=== PATIENT | female | born 1995 | race American Indian/Alaskan Native ===

== ENCOUNTER 2018-10-31 12:24 | Emergency (ER) | payer OTHER ==
--- NOTE | 2018-10-31 13:00 | Emergency Department Report ---
ED HPI - General Chief complaint: Abdominal Pain Stated complaint: 11 WEEKS /ABD PAIN Source: patient Mode of arrival: Ambulatory Limitations: No Limitations - History of Present Illness Initial comments: This is a 23 year-old female that is 12 weeks . Patient presents to the emergency room with abdominal pain in umbilicus. The patient states she has been having intermittent sharp cramps they usually resolve in about 15-20 minutes. Today symptoms increase while at work and never resolved. Patient's ROLL OPERATOR is Dr. Molina women's ROLL OPERATOR. She was seen by [employer] 2 weeks ago and started on Macrobid last week for UTI. Patient reports STD screen was negative. Last menstrual period was 08/07/2018, 1. Patient also reports nausea, vomiting, and back pain. She is currently taking promethazine which helped symptoms. She denies vaginal bleeding, vaginal discharge, frequency, urgency, dysuria, or chest pain. MD Complaint: abdominal pain -: This afternoon Location: abdomen Radiation: none Severity: moderate Severity scale (0 -10): 8 Quality: cramping, sharp Consistency: intermittent Improves with: none Worsens with: none Associated symptoms: nausea/vomiting, abdominal pain. denies: vaginal bleeding, vaginal discharge, dysuria, headache, vision changes, malaise, dysparuenia, rash, seizure, shortness of breath, syncope, weakness Vaginal bleeding: none :: Yes Number of weeks : 12 OB History - Current : no complications OB History - Previous Pregnancies: no complications Last menstrual period: 08/07/18 Pre- care: followed by OB - Related Data : 1 Para: 0 Ab: 0 Previous Rx's Medication Instructions Recorded Last Taken Type Clindamycin [Clindamycin CAP] 300 mg PO Q6H 10 Days capsule 08/12/13 Unknown Rx Ibuprofen [Motrin 600 MG tab] 600 mg PO Q8H PRN #20 tablet 08/12/13 Unknown Rx traMADol [Ultram 50 MG tab] 50 mg PO Q6HR PRN #10 tablet 08/12/13 Unknown Rx Ibuprofen [Motrin] 600 mg PO Q8H PRN #20 tablet 05/01/14 Unknown Rx Neomy/Polymyx B/Hc (Otic) Soln 4 drops OT TID #1 bottle 05/01/14 Unknown Rx [Cortisporin (Otic) Soln] Sulfamethoxazole/Trimethoprim 1 each PO BID #28 tablet 05/01/14 Unknown Rx [Bactrim Ds] Allergies Allergy/AdvReac Type Severity Reaction Status Date / Time amoxicillin [Amoxicillin] Allergy Hives Verified 05/01/14 18:08 ED Review of Systems ROS: Stated complaint: 11 WEEKS /ABD PAIN Other details as noted in HPI Constitutional: denies: chills, fever Respiratory: denies: cough, shortness of breath, wheezing Cardiovascular: denies: chest pain, palpitations Gastrointestinal: abdominal pain, nausea. denies: diarrhea Musculoskeletal: denies: back pain, joint swelling, arthralgia Neurological: denies: headache, weakness, paresthesias Psychiatric: denies: anxiety, depression ED Past Medical Hx - Past Medical History Hx Diabetes: No Hx Renal Disease: No Hx Sickle Cell Disease: No Hx Seizures: No Hx Asthma: Yes Hx HIV: No - Social History Smoking Status: Former Smoker Substance Use Type: None - Medications Home Medications: Home Medications Medication Instructions Recorded Confirmed Last Taken Type Clindamycin [Clindamycin CAP] 300 mg PO Q6H 10 Days capsule 08/12/13 Unknown Rx Ibuprofen [Motrin 600 MG tab] 600 mg PO Q8H PRN #20 tablet 08/12/13 Unknown Rx traMADol [Ultram 50 MG tab] 50 mg PO Q6HR PRN #10 tablet 08/12/13 Unknown Rx Ibuprofen [Motrin] 600 mg PO Q8H PRN #20 tablet 05/01/14 Unknown Rx Neomy/Polymyx B/Hc (Otic) Soln 4 drops OT TID #1 bottle 05/01/14 Unknown Rx [Cortisporin (Otic) Soln] Sulfamethoxazole/Trimethoprim 1 each PO BID #28 tablet 05/01/14 Unknown Rx [Bactrim Ds] ED Physical Exam - General Limitations: No Limitations General appearance: alert, in no apparent distress - Respiratory Respiratory exam: Present: normal lung sounds bilaterally. Absent: respiratory distress - Cardiovascular Cardiovascular Exam: Present: regular rate, normal rhythm. Absent: systolic murmur, diastolic murmur, rubs, gallop - GI/Abdominal GI/Abdominal exam: Present: soft, tenderness (suprapubic tenderness), normal bowel sounds. Absent: distended, guarding, rebound, rigid, organomegaly, mass - Back Exam Back exam: Absent: CVA tenderness (R), CVA tenderness (L) - Neurological Exam Neurological exam: Present: alert, oriented X3, normal gait - Psychiatric Psychiatric exam: Present: normal affect, normal mood - Skin Skin exam: Present: warm, dry, intact, normal color. Absent: rash ED Course Vital Signs 10/31/18 12:29 Temperature 99.5 F Pulse Rate 90 Respiratory 18 Rate Blood Pressure 140/63 O2 Sat by Pulse 99 Oximetry ED Medical Decision Making - Radiology Data Radiology results: report reviewed ULTRASOUND OB LESS THAN 14 WEEKS - TRANSABDOMINAL INDICATION: Abdominal pain, 12 weeks gestation. COMPARISON: None similar. FINDINGS: Transabdominal pelvic sonography performed in this patient with LMP of 08/07/2018 and estimated menstrual age of 12 weeks and 1 day. It demonstrates a 12.3 x 8.7 x 8.1 cm gravid uterus. A heart rate of 147 beats per minute. A small subchorionic hemorrhage possible. No significant pelvic free fluid. Mean crown-rump length of 4.4 cm corresponds to 11 weeks and 2 days. Biparietal diameter is 2 cm, 13 weeks and 1 day. Femur length 1.1 cm, 13 weeks and 2 days. Maternal ovaries appear unremarkable, approximately 3.5 x 2 x 1.5 cm on the right and 3.3 x 2.1 x 3.3 cm on the left. CONCLUSION: 1. Single, live intrauterine gestation with an ultrasound estimated age of 12 weeks and 4 days and ROXY of 05/11/2019. 2. Other findings, as above. - Medical Decision Making This is a 23 y.o. female presents with abdominal pain and 12 weeks . Patient was examined by me. Vitals are normal and patient is in no acute distress. Obtained hCG quant, urinalysis, and OB ultrasound. Quant [id number], all other labs unremarkable. 1. Single, live intrauterine gestation with an ultrasound estimated age of 12 weeks and 4 days and ROXY of 05/11/2019. 2. Other findings, as above. Patient is currently taking Macrobid for acute cystitis. Patient instructed to follow up with ROLL OPERATOR. Patient discharged home in stable condition. Critical care attestation.: If time is entered above; I have spent that time in minutes in the direct care of this critically ill patient, excluding procedure time. ED Disposition Clinical Impression: Threatened miscarriage Abdominal pain during Qualifiers: Trimester: first trimester Qualified Code(s): O26.891 - Other specified related conditions, first trimester; R10.9 - Unspecified abdominal pain Subchorionic hemorrhage in first trimester Qualifiers: Fetus number: single or unspecified fetus Qualified Code(s): O41.8X10 - Other specified disorders of amniotic fluid and membranes, first trimester, not applicable or unspecified; O46.8X1 - Other antepartum hemorrhage, first trimester Disposition: TO HOME OR SELFCARE Is pt being admited?: No Does the pt Need Aspirin: No Condition: Stable Instructions: Abdominal Pain (ED) Additional Instructions: Follow up with ROLL OPERATOR in 24-48 hours. Return to ER if increased vaginal bleeding, abdominal pain, and low back pain. Referrals: SALAZAR PORRAS MD [Primary Care Provider] - 3-5 Days Forms: Work/School Release Form(ED) Time of Disposition: 15:07
[2018-10-31 13:22] LABS: Bilirubin,Urine NEG (Negative); Blood,Urine NEG (Negative); Color,Urine Yellow (Yellow); Mucus,Urine FEW /HPF; Protein,Urine <15 mg/dL mg/dL (Negative); Urobilinogen,Urine < 2.0 mg/dL (<2.0)
--- NOTE | 2018-10-31 14:43 | Ultrasound Report ---
ULTRASOUND OB LESS THAN 14 WEEKS - TRANSABDOMINAL INDICATION: Abdominal pain, 12 weeks gestation. COMPARISON: None similar. FINDINGS: Transabdominal pelvic sonography performed in this patient with LMP of 08/07/2018 and estimated menstrual age of 12 weeks and 1 day. It demonstrates a 12.3 x 8.7 x 8.1 cm gravid uterus. A heart rate of 147 beats per minute. A small subchorionic hemorrhage possible. No significant pelvic free fluid. Mean crown-rump length of 4.4 cm corresponds to 11 weeks and 2 days. Biparietal diameter is 2 cm, 13 weeks and 1 day. Femur length 1.1 cm, 13 weeks and 2 days. Maternal ovaries appear unremarkable, approximately 3.5 x 2 x 1.5 cm on the right and 3.3 x 2.1 x 3.3 cm on the left. CONCLUSION: 1. Single, live intrauterine gestation with an ultrasound estimated age of 12 weeks and 4 days and ROXY of 05/11/2019. 2. Other findings, as above. Thank you for the opportunity to participate in this patient's care.
[2018-11-02 12:05] VITALS: BP 140/63
== END 2018-10-31 15:19 | disposition home or self-care (01) ==
LOC: ED 12:24
DX: O20.0 Threatened abortion (principal); O41.8X10 Other specified disorders of amniotic fluid and membranes, first trimester, not applicable or unspecified; Z3A.12 12 weeks gestation of pregnancy; J45.909 Unspecified asthma, uncomplicated; Z87.891 Personal history of nicotine dependence
CPT/HCPCS: 36415; 76801; 81001; 84702; 86850; 86900; 86901

== ENCOUNTER 2019-04-07 17:46 | Observation (INO) | payer OTHER ==
[2019-04-07 20:17] LABS: Bacteria,Urine 1+ /HPF (Negative); Bilirubin,Urine NEG (Negative); Blood,Urine NEG (Negative); Color,Urine Yellow (Yellow); Mucus,Urine FEW /HPF; Protein,Urine <15 mg/dL mg/dL (Negative); Urobilinogen,Urine < 2.0 mg/dL (<2.0)
[2019-04-07 20:20] LABS: Hematocrit 38.7 % (30.3-42.9); Hemoglobin 13.2 gm/dl (10.1-14.3); Mean Corpuscular HGB Conc 34 % (30-34); Mean Corpuscular Volume 99 fl (79-97); Platelet Count 230 K/mm3 (140-440); Red Blood Count 3.92 M/mm3 (3.65-5.03); Red Cell Distribution Width 13.1 % (13.2-15.2)
[2019-04-07] MEDS ORDERED: LACTATED RINGERS 500 ML IV ONE (20:39)
[2019-04-07 21:22] LABS: Alanine Aminotransferase 20 units/L (7-56); Uric Acid 3.5 mg/dL (3.5-7.6)
--- NOTE | 2019-04-07 23:39 | History and Physical Report ---
History of Present Illness Date of examination: 04/07/19 Date of admission: 04/07/19 22:08 Chief complaint: Direct admit per [facility] History of present illness: This is a 23 yo at 34+5 weeks here for direct admit after symptomatic elevated BP 140/86. Past History Past Medical History: no pertinent history Past Surgical History: no surgical history Family/Genetic History: none Social history: single. denies: smoking, alcohol abuse, prescription drug abuse - Obstetrical History Expected Date of Delivery: 05/14/19 Actual Gestation: 34 Week(s) 5 Day(s) : 1 Para: 0 Hx # Term Pregnancies: 0 Number of Pregnancies: 0 Spontaneous Abortions: 0 Induced : 0 Number of Living Children: 0 Medications and Allergies Allergies Allergy/AdvReac Type Severity Reaction Status Date / Time amoxicillin [Amoxicillin] Allergy Hives Verified 05/01/14 18:08 Home Medications Medication Instructions Recorded Confirmed Last Taken Type Clindamycin [Clindamycin CAP] 300 mg PO Q6H 10 Days capsule 08/12/13 Unknown Rx Ibuprofen [Motrin 600 MG tab] 600 mg PO Q8H PRN #20 tablet 08/12/13 Unknown Rx traMADol [Ultram 50 MG tab] 50 mg PO Q6HR PRN #10 tablet 08/12/13 Unknown Rx Ibuprofen [Motrin] 600 mg PO Q8H PRN #20 tablet 05/01/14 Unknown Rx Neomy/Polymyx B/Hc (Otic) Soln 4 drops OT TID #1 bottle 05/01/14 Unknown Rx [Cortisporin (Otic) Soln] Sulfamethoxazole/Trimethoprim 1 each PO BID #28 tablet 05/01/14 Unknown Rx [Bactrim Ds] Review of Systems All systems: negative - Vital Signs Vital signs: Vital Signs Pulse BP 98 H 127/66 04/07/19 19:29 04/07/19 19:29 Temp Pulse Resp BP Pulse Ox 96.6 F L 96 H 140/65 04/07/19 19:47 04/07/19 23:30 04/07/19 23:30 - Physical Exam Breasts: Positive: normal Cardiovascular: Regular rate, Normal S1 Lungs: Positive: Clear to auscultation, Normal air movement Abdomen: Positive: normal appearance, soft, normal bowel sounds. Negative: distention, tenderness, guarding Genitourinary (Female): Positive: normal external genitalia, normal perenium Vulva: both: normal Vagina: Positive: normal moisture Uterus: Positive: normal size, normal contour Anus/Rectum: Positive: normal perianal skin, heme negative Extremities: Positive: normal Deep Tendon Reflex Grade: Normal +2 - Obstetrical FHR: category 1 Results Result Diagrams: 04/07/19 19:53 04/07/19 19:53 Abnormal lab results 04/07/19 04/07/19 Range/Units 19:53 19:53 MCV 99 H (79-97) fl MCH 34 H (28-32) pg RDW 13.1 L (13.2-15.2) % Creatinine 0.4 L (0.7-1.2) mg/dL All other labs normal. Assessment and Plan A/P IUP 34+5 weeks elevated BP PIH w/u with labs sent Betamethasone for lung maturity if increase range of BP will consider Mag continuous monitoring
[2019-04-08] VITALS: BP 121/56
[2019-04-08] MEDS ORDERED: CELESTONE SOLUSPAN IM SCH
== END 2019-04-08 00:48 | disposition home or self-care (01) ==
LOC: TRG 17:46 → LD 18:32 → TRG 22:07 → LD 22:08
PROVIDERS: ADMIT Obstetrics & Gynecology; ATTEND Obstetrics & Gynecology
DX: O26.893 Other specified pregnancy related conditions, third trimester (principal); R03.0 Elevated blood-pressure reading, without diagnosis of hypertension; Z3A.34 34 weeks gestation of pregnancy
CPT/HCPCS: 36415; 81001; 82565; 83615; 84450; 84460; 84550; 85027; 86850; 86900; 86901; G0378; J0702; 59025

== ENCOUNTER 2019-04-09 16:59 | Outpatient (CLI) | payer OTHER ==
[2019-04-09] MEDS ORDERED: CELESTONE SOLUSPAN IM SCH (18:00)
== END 2019-04-09 17:44 | disposition home or self-care (01) ==
LOC: TRG 16:59
PROVIDERS: ATTEND Obstetrics & Gynecology
DX: O47.03 False labor before 37 completed weeks of gestation, third trimester (principal); Z3A.35 35 weeks gestation of pregnancy; Z87.891 Personal history of nicotine dependence
CPT/HCPCS: 96372; J0702

== ENCOUNTER 2019-05-04 23:39 | Inpatient (IN) | payer OTHER ==
[2019-05-05 03:17] LABS: Hematocrit 38.3 % (30.3-42.9); Hemoglobin 13.5 gm/dl (10.1-14.3); Mean Corpuscular HGB Conc 35 % (30-34); Mean Corpuscular Volume 97 fl (79-97); Red Blood Count 3.95 M/mm3 (3.65-5.03)
[2019-05-05 03:24] LABS: Platelet Count 256 K/mm3 (140-440)
[2019-05-05] MEDS ORDERED: SUBLIMAZE IV ONE (08:20)
[2019-05-05] MEDS ORDERED: SUBLIMAZE ONE ×2 (08:24→10:12)
[2019-05-05] MEDS ORDERED: LACTATED RINGERS 1,000 ML ONE (08:37)
[2019-05-05] MEDS ORDERED: MINERAL OIL PO PRN (08:57)
[2019-05-05] MEDS ORDERED: BRETHINE IVP PRN (08:57)
[2019-05-05] MEDS ORDERED: STADOL IV PRN (08:57)
[2019-05-05] MEDS ORDERED: XYLOCAINE 2% INFILTRATI ONE (08:57)
[2019-05-05] MEDS ORDERED: BRETHINE SUB-Q PRN (08:57)
[2019-05-05] MEDS ORDERED: ZOFRAN IV PRN ×2 (08:57→17:06)
--- NOTE | 2019-05-05 08:57 | History and Physical Report ---
History of Present Illness Date of examination: 05/05/19 Date of admission: 05/05/2019 Chief complaint: leakage of fluid History of present illness: 23y/o @ 38+5 weeks with gross rupture of membranes with clear fluid. The patient was 1cm dilated at presentation. course initiated at 12 weeks ega. Her course is complicated by morbid obesity, STD exposure, and asthma. GBS negative Past History Past Medical History: asthma, other (morbid obesity) Past Surgical History: no surgical history Social history: single - Obstetrical History Expected Date of Delivery: 05/14/19 Actual Gestation: 38 Week(s) 5 Day(s) : 1 Para: 0 Hx # Term Pregnancies: 0 Number of Pregnancies: 0 Spontaneous Abortions: 0 Induced : 0 Medications and Allergies Allergies Allergy/AdvReac Type Severity Reaction Status Date / Time amoxicillin [Amoxicillin] Allergy Hives Verified 05/01/14 18:08 Home Medications Medication Instructions Recorded Confirmed Last Taken Type No Known Home Medications [No 05/05/19 05/05/19 Unknown History Reported Home Medications] Review of Systems All systems: negative Genitourinary: leakage of fluid - Vital Signs Vital signs: Vital Signs Pulse BP 99 H 130/74 05/05/19 02:04 05/05/19 02:04 Temp Pulse Resp BP Pulse Ox 96.3 F L 99 H 20 130/74 05/05/19 02:28 05/05/19 02:04 05/05/19 02:28 05/05/19 02:04 - Physical Exam Breasts: Positive: deferred Cardiovascular: Regular rate Lungs: Positive: Clear to auscultation Results Result Diagrams: 05/05/19 01:55 Abnormal lab results 05/05/19 Range/Units 01:55 MCH 34 H (28-32) pg MCHC 35 H (30-34) % All other labs normal. Assessment and Plan - Patient Problems (1) Spontaneous rupture of amniotic membranes Current Visit: Yes Status: Acute Plan to address problem: admit and initiate augmentation (2) Morbid obesity Current Visit: Yes Status: Acute
[2019-05-05] MEDS ORDERED: PITOCin/NS 30 UNIT/500ML 30 UNITS/500 ML BAG IV SCH (09:00)
[2019-05-05] MEDS ORDERED: LACTATED RINGERS 1,000 ML IV SCH (09:00)
[2019-05-05] MEDS ORDERED: NARCAN 2 MG/2 ML IV PRN (10:05)
--- NOTE | 2019-05-05 10:09 | Anesthesia Consultation ---
Anesthesia Consult and Med Hx Date of service: 05/05/19 - Airway Anesthetic Teeth Evaluation: Good ROM Head & Neck: Adequate Mental/Hyoid Distance: Adequate Mallampati Class: Class II - Pulmonary Exam CTA: Yes - Cardiac Exam Cardiac Exam: RRR - Pre-Operative Health Status ASA Pre-Surgery Classification: ASA2, Emergency Proposed Anesthetic Plan: Epidural - Pulmonary Hx Asthma: No COPD: No Hx Pneumonia: No - Cardiovascular System Hx Hypertension: No - Central Nervous System Hx Seizures: No Hx Psychiatric Problems: No - Endocrine Hx Renal Disease: No Hx End Stage Renal Disease: No Hx Hypothyroidism: No Hx Hyperthyroidism: No - Hematic Hx Anemia: No Hx Sickle Cell Disease: No - Other Systems Hx Alcohol Use: No
[2019-05-05] MEDS ORDERED: MARCAINE 0.25% INFILTRATI ONE (10:12)
[2019-05-05] MEDS ORDERED: fentaNYL-BUPIV 2 MCG/ML-0.125% 200 MCG/100 ML BAG EPIDURAL SCH (11:00)
[2019-05-05] MEDS ORDERED: METHERGINE IM ONE (13:39)
[2019-05-05] MEDS: PITOCin/NS 20 UNIT/1000ML DRIP 20 UNITS/1,000 ML BAG IV SCH ×2 (16:40→18:47)
[2019-05-05] MEDS ORDERED: PHENERGAN PR PRN (17:06)
[2019-05-05] MEDS ORDERED: LANSINOH TP PRN (17:06)
[2019-05-05] MEDS ORDERED: DULCOLAX PR PRN (17:06)
[2019-05-05] MEDS ORDERED: TUCKS PAD TP PRN (17:06)
[2019-05-05] MEDS ORDERED: MILK OF MAGNESIA PO PRN (17:06)
[2019-05-05] MEDS ORDERED: BENADRYL PO PRN (17:06)
[2019-05-05] MEDS ORDERED: TYLENOL PO PRN (17:06)
[2019-05-05] MEDS ORDERED: PHENERGAN PO PRN (17:06)
--- NOTE | 2019-05-05 17:06 | Procedure Note ---
OB Delivery Note - Delivery Date of Delivery: 05/05/19 Surgeon: SALAZAR PORRAS Estimated blood loss: 100cc - Vaginal Delivery presentation: vertex Delivery position: OA Intrapartum events: none Delivery augmentation: pitocin Delivery monitor: external FHT, external uterine, internal FHT, internal uterine Route of delivery: Delivery placenta: spontaneous Delivery cord: 3 umbilical vessels Episiotomy: none Delivery laceration: none Anesthesia: epidural Delivery comments: Patient progressed to C/C/+1 and pushed to deliver a liveborn female infant with apgars of 8/9 and weight of 6lbs 0oz. After delivery of the head, the shoulders delivered without difficulty. The infant was bulb suctioned and stimulated. The cord was clamped and cut and infant placed on the patient's abdomen. The placenta delivered spontaneously intact with a 3VC. Small vaginal laceration noted left unrepaired. EBL 100ml. - A at 1 minute: 8 at 5 minutes: 9 Infant Gender: Female (weight 6lbs 0oz)
--- NOTE | 2019-05-05 17:45 | Post Anesthesia Evaluation ---
- Post Anesthesia Evaluation Patient Participated: Yes Airway Patent: Yes Stable Respiratory Function: Yes Nausea/Vomiting: No Temp > 96.8F: Yes Pain Manageable: Yes Adequeate Hydration: Yes Anesthesia Complications: No Block Receding Appropriately: Yes Patient on Ventilator: No
[2019-05-05] MEDS ORDERED: SODIUM CHLORIDE FLUSH SYRINGE 10 ML IV NR (18:00)
[2019-05-06] MEDS: IBUPROFEN PO SCH ×5 (00:35→17:12)
[2019-05-06 06:50] LABS: Hematocrit 36.1 % (30.3-42.9); Hemoglobin 12.5 gm/dl (10.1-14.3)
[2019-05-06] MEDS: NORCO 5/325 PO PRN ×2 (11:11→17:11)
--- NOTE | 2019-05-06 18:02 | Progress Note ---
Assessment and Plan A: PPD#1 s/p , Morbid Obesity, Requesting discharge P: Routine care. Discharge today per pt request Subjective - Subjective Date of service: 05/06/19 Principal diagnosis: s/p at term, Morbid Obesity Interval history: Pt has no complaints. She would like to go home today if possible. Patient reports: appetite normal, voiding normally, pain well controlled, ambulating normally [place]: doing well Objective - Vital Signs Latest vital signs: Vital Signs Temp Pulse Resp BP Pulse Ox 05/06/19 16:28 97.4 F L 91 H 18 126/69 05/06/19 12:01 98.8 F 77 18 129/69 05/06/19 08:06 98.3 F 83 18 133/68 05/06/19 02:46 20 05/06/19 00:00 98.6 F 78 16 119/74 05/05/19 19:30 98.6 F 66 18 114/74 05/05/19 18:45 97.9 F 88 16 136/59 100 Intake and Output 05/06/19 05/06/19 05/06/19 06:59 14:59 22:59 Intake Total 960 480 Output Total 400 300 Balance -400 660 480 Intake: Oral 960 480 Output: Urine 400 300 Void 400 300 Other: Total, Intake Amount 480 480 Total, Output Amount 400 300 # Voids Void 1 1 # Bowel Movements 1 - Exam Breasts: Present: deferred Cardiovascular: Present: Regular rate Lungs: Present: Clear to auscultation Abdomen: Present: soft Uterus: Present: fundal height at umbilicus Extremities: Present: edema (1+)
--- NOTE | 2019-05-06 18:04 | Discharge Summary ---
Providers - Providers Date of Admission: 05/04/19 23:40 Date of discharge: 05/06/19 Attending physician: SALAZAR PORRAS Primary care physician: SALAZAR PORRAS Hospitalization Reason for admission: rupture of membranes Delivery: Procedure details: Please see delivery note Episiotomy: none Laceration: none Other procedures: none complications: none Discharge diagnosis: IUP at term delivered baby: female Hospital course: Pt was admitted with rupture of membranes and went on to have a spontaneous vaginal delivery. Her course was uncomplicated and she met discharge criteria on PPD#1. She will follow up in 4 wks in office. Condition at discharge: Stable Disposition: DC- TO HOME OR SELFCARE - Discharge Diagnoses (1) Term of female Status: Acute (2) Morbid obesity Status: Acute (3) Spontaneous rupture of amniotic membranes Status: Acute Plan - Discharge Medications Prescriptions: Ibuprofen [Motrin] 800 mg PO Q8HR PRN #30 tablet PRN Reason: Pain, Moderate (4-6) HYDROcodone/APAP 5-325 [[place] 5/325] 1 each PO Q6H PRN #20 tablet PRN Reason: Pain - Provider Discharge Summary Activity: routine, no sex for 6 weeks, no heavy lifting 4 weeks, no strenuous exercise Diet: routine Instructions: routine Additional instructions: [] Smoking cessation referral if applicable(refer to patient education folder for contact #) [] Refer to [facility] Booklet Call your doctor immediately for: * Fever > 100.5 * Heavy vaginal bleeding ( >1 pad per hour) * Severe persistent headache * Shortness of breath * Reddened, hot, painful area to leg or breast * Drainage or odor from incision. * Keep incision clean and dry at all times and follow doctor's instructions regarding bathing/showering - Follow up plan Follow up: JONNIE NARANJO CNM [Advanced Practice Nurse] - 06/16/19 (Please call to schedule appt)
[2019-05-06 19:46] VITALS: BP 129/73
== END 2019-05-06 20:35 | disposition home or self-care (01) | DRG 775 ==
LOC: TRG 23:39 → LD 23:40 → TRG 05-05 00:57 → LD 05-05 00:57 → OB 05-05 18:25
PROVIDERS: ADMIT Obstetrics & Gynecology; ATTEND Obstetrics & Gynecology
PROC: 10E0XZZ Delivery of Products of Conception, External Approach (ICD-10-PCS; principal; 2019-05-05)
PROC: 3E0R3BZ Introduction of Anesthetic Agent into Spinal Canal, Percutaneous Approach (ICD-10-PCS; 2019-05-05)
PROC: 00HU33Z Insertion of Infusion Device into Spinal Canal, Percutaneous Approach (ICD-10-PCS; 2019-05-05)
DX: O99.52 Diseases of the respiratory system complicating childbirth (principal); O99.214 Obesity complicating childbirth; E66.01 Morbid (severe) obesity due to excess calories; J45.909 Unspecified asthma, uncomplicated; Z37.0 Single live birth; Z3A.38 38 weeks gestation of pregnancy; Z88.1 Allergy status to other antibiotic agents
CPT/HCPCS: 36415; 85014; 85018; 85027; 86592; 86850; 86900; 86901; G0378; J2590; J3010; J7120